=== PATIENT | male | born 1975 | race Two or more races ===

== ENCOUNTER 2018-06-18 03:32 | Emergency (ER) | payer MEDICAID ==
[~2018-06-18] VITALS: Ht 177.8 cm; Wt 91.6 kg
[2018-06-18] MEDS ORDERED: LIDOCAINE HCL 1% 20 ML VIAL IJ ONE (04:00)
[2018-06-18] MEDS ORDERED: HYDROCODONE/APAP 5-325MG TABLET ONE (04:13)
[2018-06-18] MEDS ORDERED: HYDROCODONE/APAP 5-325MG TABLET PO ONE (04:15)
--- NOTE | 2018-06-18 04:37 | NUR ---
Patient discharged to home in stable conditon. Written and verbal after care instructions given. Patient verbalizes understanding of instructions.
== END 2018-06-18 04:38 | disposition home or self-care (01) ==
LOC: ER 03:38
DX: L03.012 Cellulitis of left finger (principal)
CPT/HCPCS: 10060; 73140; 99283; J3490; A4663

== ENCOUNTER 2018-08-13 19:38 | Emergency (ER) | payer MEDICAID ==
[~2018-08-13] VITALS: Ht 177.8 cm; Wt 91.6 kg
--- NOTE | 2018-08-13 19:50 | NUR ---
Patient ambulated with stable gait. AAOx4. Speech is clear, speaks in complete sentences. No neuro deficits. Patient came in for c/o redness, swelling on left shinx2 days. Respiratory even and unlabored, no sob, no cough. No GI/ distress noted. Patient in bed at lowest position. Side rails upx2. Call light within reach. Fall precautions implemented per protocol.
[2018-08-13] MEDS ORDERED: CEFAZOLIN 1 G VIAL IM ONE (20:15)
--- NOTE | 2018-08-13 20:16 | NUR ---
ANCEF 2G administered IM per ER MD order.
[2018-08-13] MEDS ORDERED: CEFAZOLIN 1 G VIAL ONE (20:18)
[2018-08-13 20:23] LABS: BASOPHILS # (AUTO) 0.1 K/uL (0.0-8.0); BASOPHILS % (AUTO) 0.7 % (0.0-2.0); EOSINOPHILS % (AUTO) 0.5 % (0.0-7.0); HEMATOCRIT 41.3 % (36.7-47.1); HEMOGLOBIN 13.9 g/dL (12.5-16.3); LYMPHOCYTES # (AUTO) 1.4 K/uL (20.0-40.0); LYMPHOCYTES % (AUTO) 17.9 % (20.5-51.5); MEAN CORPUSCULAR HEMOGLOBIN 29.6 uug (23.8-33.4); MEAN CORPUSCULAR HGB CONC 34 g/dL (32.5-36.3); MEAN CORPUSCULAR VOLUME 87.7 fL (73.0-96.2); MONOCYTES # (AUTO) 0.5 K/uL (2.0-10.0); NEUTROPHILS # (AUTO) 5.7 K/uL (1.8-8.9); NEUTROPHILS % (AUTO) 73.9 % (38.5-71.5); PLATELET COUNT (AUTO) 231 K/uL (152-348); WHITE BLOOD COUNT (AUTO) 7.8 K/uL (3.6-10.2)
[2018-08-13 20:31] LABS: CREATININE 1.1 mg/dL (0.6-1.3); POTASSIUM 3.7 mmol/L (3.5-5.1)
--- NOTE | 2018-08-13 21:00 | NUR ---
Patient discharged to home in stable conditon. Written and verbal after care instructions given. Patient verbalizes understanding of instructions. Patient ambulated with stable gait.
[2018-08-13 21:01] VITALS: BP 115/83
== END 2018-08-13 21:02 | disposition home or self-care (01) ==
LOC: ER 19:41
DX: L03.116 Cellulitis of left lower limb (principal); R42 Dizziness and giddiness; R20.2 Paresthesia of skin
CPT/HCPCS: 36415; 80048; 83605; 85025; 87040 ×2; 93005; 96372 ×2; 99284; J0690; A4217; A4663

== ENCOUNTER 2018-08-30 20:29 | Emergency (ER) | payer MEDICAID ==
[~2018-08-30] VITALS: Ht 177.8 cm; Wt 91.6 kg
--- NOTE | 2018-08-30 20:58 | NUR ---
Dr Jay into eval Patient
[2018-08-30] MEDS: IV NORMAL SALINE 1000 ML BAG IV ONE (21:12)
--- NOTE | 2018-08-30 21:18 | NUR ---
patient out of unit for ct scan
--- NOTE | 2018-08-30 21:25 | NUR ---
patient back from ct scan with no distress noted
[2018-08-30 21:29] LABS: BASOPHILS # (AUTO) 0.1 K/uL (0.0-8.0); BASOPHILS % (AUTO) 3.2 % (0.0-2.0); EOSINOPHILS # (AUTO) 0.1 K/uL (0.0-0.7); EOSINOPHILS % (AUTO) 1.3 % (0.0-7.0); HEMATOCRIT 43.2 % (36.7-47.1); HEMOGLOBIN 14.4 g/dL (12.5-16.3); LYMPHOCYTES # (AUTO) 2.3 K/uL (20.0-40.0); LYMPHOCYTES % (AUTO) 55.3 % (20.5-51.5); MEAN CORPUSCULAR HGB CONC 33 g/dL (32.5-36.3); MONOCYTES # (AUTO) 0.3 K/uL (2.0-10.0); MONOCYTES % (AUTO) 6.9 % (0.0-11.0); NEUTROPHILS # (AUTO) 1.4 K/uL (1.8-8.9); NEUTROPHILS % (AUTO) 33.3 % (38.5-71.5); PLATELET COUNT (AUTO) 318 K/uL (152-348); RED BLOOD CELL COUNT(AUTO) 4.96 MIL/uL (4.06-5.63); WHITE BLOOD COUNT (AUTO) 4.2 K/uL (3.6-10.2)
[2018-08-30 21:35] LABS: CREATININE 1.1 mg/dL (0.6-1.3); POTASSIUM 3.9 mmol/L (3.5-5.1)
[2018-08-30 21:36] LABS: *BILIRUBIN,URIN NEGATIVE (NEGATIVE); *BLOOD, URINE NEGATIVE (NEGATIVE); *CLARITY,URINE CLEAR (CLEAR); *COLOR,URINE YELLOW (YELLOW); *KETONES,URINE NEGATIVE (NEGATIVE); *UROBILINOGEN,URINE 0.2 E.U./dl (NORMAL); LEUKOCYTE ESTERASE ,URINE NEGATIVE (NEGATIVE); NITRITE, URINE NEGATIVE (NEGATIVE); PH,URINE 6.5 (5.0-8.0); UGLUCOSE NEGATIVE (NEGATIVE)
[2018-08-30 21:41] LABS: BILIRUBIN,DIRECT 0.1 mg/dL (0.0-0.2); BILIRUBIN,TOTAL 0.4 mg/dL (0.2-1.0); TOTAL PROTEIN, SERUM 7.7 g/dL (6.4-8.2)
[2018-08-30 21:42] LABS: BACTERIA,URINE NONE SEEN /HPF (NONE SEEN); RBC,URINE 0-3 /HPF (0-3); SQUAMOUS EPITHELIAL CELL,UR FEW /HPF (NONE SEEN); WBC,URINE 0-3 /HPF (0-3)
--- NOTE | 2018-08-30 22:51 | NUR ---
IV removed. Catheter intact and site benign. Pressure and 4x4 gauze applied to site. No bleeding noted.
--- NOTE | 2018-08-30 22:53 | NUR ---
Patient discharged to home in stable conditon WITH FAMILY TAKING PATIENT HOME. Written and verbal after care instructions given. Patient verbalizes understanding of instructions. WALKED OUT OF ER WITH NO DISTRESS NOTED
[2018-08-30 22:56] VITALS: BP 110/89
== END 2018-08-30 22:57 | disposition home or self-care (01) ==
LOC: ER 20:31
DX: K42.9 Umbilical hernia without obstruction or gangrene (principal)
CPT/HCPCS: 36415; 83690; 85025; 85730; A4663; J7030

== ENCOUNTER 2019-05-12 04:02 | Emergency (ER) | payer MEDICAID ==
[~2019-05-12] VITALS: Ht 177.8 cm; Wt 89.4 kg
--- NOTE | 2019-05-12 05:57 | NUR ---
Patient discharged to home in stable conditon. Written and verbal after care instructions given. Patient verbalizes understanding of instructions. Patient ambulated out of ER with stable gait, in NAD.
[2019-05-12 05:58] VITALS: BP 127/83
[2019-05-12 06:42] LABS: *BILIRUBIN,URIN NEGATIVE (NEGATIVE); *BLOOD, URINE NEGATIVE (NEGATIVE); *CLARITY,URINE CLEAR (CLEAR); *COLOR,URINE YELLOW (YELLOW); *KETONES,URINE NEGATIVE (NEGATIVE); *UROBILINOGEN,URINE 0.2 E.U./dl (NORMAL); LEUKOCYTE ESTERASE ,URINE NEGATIVE (NEGATIVE); NITRITE, URINE NEGATIVE (NEGATIVE); PH,URINE 6.5 (5.0-8.0); UGLUCOSE NEGATIVE (NEGATIVE)
== END 2019-05-12 05:55 | disposition home or self-care (01) ==
LOC: ER 04:02
DX: N20.0 Calculus of kidney (principal); M54.9 Dorsalgia, unspecified
CPT/HCPCS: 76770; A4663